=== PATIENT | male | born 1975 | race Caucasian/White ===

== ENCOUNTER 2021-01-01 07:07 | Emergency (ER) | payer OTHER, SELFPAY ==
--- NOTE | ~2021-01-01 | XR_ITS ---
EXAMINATION: XR HIP, RIGHT CLINICAL INFORMATION: Pain COMPARISON: None TECHNIQUE: Two views of the right hip and one view of the pelvis. FINDINGS: There is a battery in the right lower quadrant and lead projecting over the right L3-L4 disc space level. There is mild arthritis at both hip joints with joint space narrowing and small osteophytes. No fracture, dislocation or bone lesion is seen. Bones of the pelvis are unremarkable. There are pelvic calcifications probably representing calcified phleboliths. XR/XR hip RT min 2V IMPRESSION: Mild bilateral hip arthritis.
--- NOTE | 2021-01-01 07:26 | ED.LOWEXIN ---
HPI - Extremity Injury (Lower) General Chief Complaint: Extremity Injury, Lower Stated Complaint: HIP PAIN Time Seen by Provider: 01/01/21 07:13 Source: patient Mode of arrival: ambulatory Limitations: no limitations History of Present Illness HPI Narrative: 45 yo male with dystonia and R hip pain in past told it was arthritis did heavy lifting on Thursday c/o pain very since into leg and buttock, no IVDA, no AC therapy MD complaint: hip injury Onset (ago): day(s) (Thursday) Injury: Right: hip Type of Injury: other (lifting) Place: home Severity: severe Relieving factors: nothing Exacerbating factors: weight bearing and movement Context: other (started after lifting object) Associated symptoms: able to partially bear weight Other symptoms: none Related Data Previous Rx's Medication Instructions Recorded cyclobenzaprine 10 mg PO TID PRN #14 tab 01/01/21 hydrocodone-acetaminophen 1 tab PO Q6H PRN #12 tab 01/01/21 prednisone 40 mg PO DAILY 5 Days #10 tab 01/01/21 Allergies Allergy/AdvReac Type Severity Reaction Status Date / Time Penicillins Allergy Severe ANAPHYLAXIS Verified 01/01/21 07:36 celecoxib [From CELEBREX] Allergy Intermediate RASH Verified 01/01/21 07:36 oxymorphone [From OPANA] Allergy Intermediate RASH Verified 01/01/21 07:36 Aspirin Allergy Unknown Unknown Uncoded 01/01/21 07:36 Penicillin Allergy Unknown Unknown Uncoded 01/01/21 07:36 Review of Systems Review of Systems: Constitutional : No Fever, No Chills, ENT/Mouth : No Ear Pain, No sore throat Cardiovascular : No Chest Pain, No SOB Respiratory : No Cough, No Dyspnea Gastrointestinal : No Nausea, No Vomiting, No Diarrhea, No abdominal Pain, No Hematochezia, No Melena Genitourinary : No Dysuria, No Urinary Frequency, No Hematuria, No Urinary Incontinence, Musculoskeletal : positive joint pain Skin : No Skin Lesions, No rash Neuro : No Weakness, No Numbness, No Paresthesias, no loss of bowel or bladder incontinence, no saddle anesthesia [facility] Past Medical History Medical History (Updated 01/01/21 @ 08:19 by Rossy Duff DO) Arthritis Dystonia Surgical History (Updated 01/01/21 @ 07:28 by Rossy Duff DO) Status post insertion of intrathecal pump Social History Social History (Updated 01/01/21 @ 07:27 by Rossy Duff DO) Alcohol intake: unknown Smoking Status: Never smoker Use of substances other than those prescribed or required for medical reasons: Unknown Advance Directives: No Advance Directives Information Provided: No Physical Exam Vital Signs: Vital Signs: Last Vital Signs Temp 98.0 F 01/01/21 07:30 Pulse 76 01/01/21 07:30 Resp 16 01/01/21 07:30 BP 122/76 01/01/21 07:30 Pulse Ox 99 01/01/21 07:30 Body Mass Index 25.7 Appearance: Alert. Oriented X3. No acute distress. Eyes: Pupils equal, round and reactive to light. ENT: Pharynx normal. Neck: Normal inspection. Neck supple. CVS: Normal heart rate and rhythm. Pulses normal. Respiratory: No respiratory distress. Breath sounds normal. Abdomen: Soft and nontender. Back: some ttp along L5-S1, ttp in R hip, distal NV intact, pain with any movements, SILT inner thigh Skin: Skin warm and dry. Normal skin color. Normal skin turgor. Extremities: No lower extremity edema. No calf ttp Neuro: Oriented X 3. No motor deficit. No sensory deficit. Course Course Course Narrative: no acute findings, will start on PO medications MDM - Extremity Injury (Lower) MDM Narrative Medical decision making narrative: 45 yo male with dystonia and hx of R hip pain was told he has degeneration comes in with c/o R hip/buttock radiating down to leg after heavy lifting at home no b/b incontinence, no saddle anesthesia he is NV intact no CE symptoms likely either occult hip injury vs sciatica - xrays and PO pain control ordered Discharge Plan Discharge Clinical Impression: Acute pain of right hip Sciatica Qualifiers: Laterality: right Qualified Code(s): M54.31 - Sciatica, right side Patient Disposition: Home, Self-Care Instructions: Sciatica (ED) Additional Instructions: return to ED for any worsening symptoms or concerns Prescriptions: New cyclobenzaprine 10 mg tablet 10 mg PO TID PRN (Reason: muscle spasm) Qty: 14 RF: 0 hydrocodone-acetaminophen 5-325 mg tablet 1 tab PO Q6H PRN (Reason: pain) Qty: 12 RF: 0 prednisone 20 mg tablet 40 mg PO DAILY 5 Days Qty: 10 RF: 0 Referrals: Abare,Marty [Primary Care Provider] - 3 days (if not better) Stand Alone Forms: Work/School Release
[2021-01-01 07:30] VITALS: BP 122/76; PULSE 76; RESP 16; TEMP 36.7; O2SAT 99; BMI 25.7
[2021-01-01] MEDS: HYDROcodone Bit/Acetam 5/325 TABLET 1 TAB PO (07:41)
[2021-01-01] MEDS: diazePAM 5 MG TABLET PO (07:41)
[2021-01-01] MEDS: HYDROmorphone HCl 2 MG/ML VIAL IM (08:33)
== END 2021-01-01 08:36 | disposition home or self-care (01) ==
PROVIDERS: Emergency Provider Emergency Medicine; PCP Hospitalist
DX: M25.551 Pain in right hip (principal); M54.31 Sciatica, right side; G24.9 Dystonia, unspecified
CPT/HCPCS: 73502; 96372; 99284; J1170

== ENCOUNTER 2022-05-05 11:16 | Emergency (ER) | payer OTHER, SELFPAY ==
--- NOTE | ~2022-05-05 | XR_ITS ---
EXAMINATION: XR LUMBOSACRAL SPINE CLINICAL INFORMATION: Back pain after injury 4 days ago COMPARISON: CT abdomen pelvis 06/07/2020 TECHNIQUE: Three views of the lumbosacral spine. FINDINGS: 5 nonrib-bearing lumbar vertebral bodies are visualized. Alignment is within normal limits. Lumbar vertebral body heights are maintained. Mild narrowing of the L5/S1 disc space height. Sacroiliac joints are symmetric. Partially visualized generator and spinal stimulator lead. Small pelvic calcifications are likely vascular in nature. Small left renal calcifications suspected. XR/XR lumbar spine 2-3V IMPRESSION: Minimal degenerative changes of the lower lumbar spine.
[2022-05-05 11:57] VITALS: BP 115/71; PULSE 79; RESP 20; TEMP 37.1; O2SAT 98; BMI 30.1
--- NOTE | 2022-05-05 13:08 | ED.BACK ---
HPI - Back Pain/Injury General Chief Complaint: Back Pain/Injury Stated Complaint: back pain Time Seen by Provider: 05/05/22 12:41 Source: patient Mode of arrival: ambulatory Limitations: no limitations History of Present Illness HPI Narrative: Patient presents emergency department for evaluation of lower back pain. He reports that 5 days ago, 05/01/2022 he was bending forward and lifting something at work when he felt a sudden pull in his lower back. He presented to urgent care over the weekend, and states he was given a prescription for prednisone and a muscle relaxer, uncertain of the name, but states that neither have been helpful for his pain. Today he was being seen by his doctor for secondary generalized dystonia, for which he is prescribed baclofen via intrathecal pump, and at this office he received a ?Motrin injection? into his arm for his back pain, but he has continued to have no relief. Denies recent fevers, chills, burning with micturition, urinary frequency/urgency/hesitancy, bladder or bowel dysfunction, numbness or tingling of the perineum or bilateral legs. Denies any recent surgical procedures, any known immune compromising conditions, personal history of cancer, or IV drug usage. MD elicited complaint: back pain Related Data Previous Rx's Medication Instructions Recorded cyclobenzaprine 10 mg tablet 10 mg PO TID PRN muscle spasm #14 01/01/21 tabs hydrocodone 5 mg-acetaminophen 325 1 tab PO Q6H PRN pain #12 tabs 01/01/21 mg tablet prednisone 20 mg tablet 40 mg PO DAILY 5 days #10 tabs 01/01/21 oxycodone 5 mg tablet 5 mg PO Q8H PRN pain #10 tabs 05/05/22 Allergies Allergy/AdvReac Type Severity Reaction Status Date / Time Penicillins Allergy Severe ANAPHYLAXIS Verified 05/05/22 12:02 celecoxib [From CELEBREX] Allergy Intermediate RASH Verified 05/05/22 12:02 oxymorphone [From OPANA] Allergy Intermediate RASH Verified 05/05/22 12:02 Aspirin Allergy Unknown Unknown Uncoded 05/05/22 12:02 Penicillin Allergy Unknown Unknown Uncoded 05/05/22 12:02 Review of Systems Review of Systems: Constitutional: No weight loss, fever, chills, weakness or fatigue. Skin: No rash or itching. Cardiovascular: No chest pain, chest pressure or chest discomfort. No palpitations or pedal edema. Respiratory: No shortness of breath, cough or sputum production. Gastrointestinal: No anorexia, nausea, vomiting or diarrhea. No abdominal pain or blood in stool. Genitourinary: No burning micturition. No urinary frequency or incontinence. Neurologic: No headache, dizziness, syncope, unilateral weakness, ataxia, numbness or tingling in the extremities. No change in bowel or bladder control. Musculoskeletal: + Back pain as noted in HPI. No joint pain or stiffness. Hematologic: No bleeding or bruising. Lymphatics: No enlarged lymph nodes. Psychiatric:No depression or anxiety. Endocrine: No reports of sweating. No cold or heat intolerance. No polyuria or polydipsia. Yes all other systems are reviewed and are negative PMFSH Past Medical History Attestation statement: The following information was validated with the patient. Source: old records reviewed Medical History Arthritis Dystonia Surgical History Status post insertion of intrathecal pump Social History Social History Alcohol intake: unknown Advance Directives: No Advance Directives Information Provided: No Physical Exam Vital Signs: Vital Signs: Last Vital Signs Temp 98.8 F 05/05/22 11:57 Pulse 79 05/05/22 11:57 Resp 20 05/05/22 11:57 BP 115/71 05/05/22 11:57 Pulse Ox 98 05/05/22 11:57 O2 Del Method 05/05/22 11:57 BMI result Body Mass Index 30.1 Vital signs have been reviewed as normal and appeared to be correct. Blood pressure normal.? Heart rate normal.? Respiration rate normal. Temperature normal.? Oxygen saturation normal. Appearance: Alert.?Oriented to person, place and time. No acute distress.?Normal affect. Eyes: Pupils equal, round and reactive to light.? ENT: Pharynx normal.?? Neck: Normal inspection.? Neck supple.?? CVS: Heart sounds normal. Normal heart rate and rhythm.? Pulses normal; bilateral radial pulses 2+, bilateral posterior tibial/dorsalis pedis pulses 2+.? Respiratory: No respiratory distress.? Lung sounds clear to auscultation bilaterally?? Abdomen: Soft and non-tender. Normoactive bowel sounds. No pulsatile mass.?? Skin: Skin warm and dry.? Normal skin color.? Normal skin turgor.?? Extremities: No lower extremity edema.? No calf ttp? Back: + paraspinal muscular tenderness from lumbar region to coccyx. No CVA tenderness. No midline spinal tenderness, step-off's, or deformity. Full ROM intact in bilateral lower extremities. Straight leg test positive on right; Straight leg test positive on left. No rashes, lesions, areas of induration or fluctuance, or signs of infection noted. Neuro: Moves all extremities spontaneously. 5/5 strength in hip extension/flexion, abduction, adduction. Sensation to light touch intact bilaterally. Patellar and Achilles reflex 2+ bilaterally. No ataxia, gait slow steady, and antalgic. No focal neuro deficits. Course Course Course Narrative: Patient is a 46year-old male with a past medical history of arthritis, and dystonia presenting for evaluation of lower back pain after an injury at work. XR of the lumbar spine reveals mild degenerative changes, urinalysis overall unremarkable, no sign of infection or microscopic hematuria. Given he has trialed NSAIDs, prednisone, muscle relaxer at home, continues take significant pain and had gait, and provide additional pain control to go home with, allergy list includes oxymorphone, states he has taken oxycodone in the past without any complication or allergic reaction. Pain is most consistent with muscular pain, although cannot completely exclude herniated disc. On neurological exam there are no deficits. Not consistent with spinal fracture, spinal infection, epidural abscess, AAA, epidural abscess, or dissection. No high risk past medical history including incontinence, fever, immunosuppression, recent surgery or lumbar puncture, coagulopathy, significant trauma, recent unintentional weight loss, pulsatile mass, history of cancer, history of TB, history of IV drug use that would warrant MRI or CT. Not consistent with pyelonephritis, urinary tract infection, renal calculi, appendicitis, diverticulitis. On exam no concern for cauda equina syndrome. No additional imaging is currently indicated at this time. Plan for discharge home with new prescription for oxycodone, and follow-up with primary care provider, discussed reasons to return back to the emergency department, and patient agreed with plan. MDM - Back Pain/Injury Medical Records Attestation: I reviewed the patient's medical records. Lab Data Labs: Lab Results 05/05/22 Range/Units 13:43 Urine Color YELLOW Urine Appearance CLOUDY Urine pH 8.5 H (5.0-8.0) Ur Specific [place] 1.015 (1.005-1.025) Urine Protein NEG (NEG-TRACE) MG/DL Urine Glucose (UA) NEG (NEG) MG/DL Urine Ketones NEG (NEG) MG/DL Urine Blood NEG (NEG) Urine Nitrite NEG (NEG) Ur Leukocyte Esterase NEG (NEG) Imaging Data XR lumbar: Radiologist's impression: XR/XR lumbar spine 2-3V IMPRESSION: Minimal degenerative changes of the lower lumbar spine. Discharge Plan Discharge Clinical Impression: Strain of lumbar region Patient Disposition: Home, Self-Care Instructions: Acute Low Back Pain (ED), Lower Back Exercises (ED) Additional Instructions: Finish your course of prednisone that you were prescribed. Rest, avoid any twisting pulling or lifting with your back. Ice or heat may be used as well. You have been given a prescription for oxycodone to use as needed for pain, this is a narcotic, it can be addictive, and may make you drowsy, he should use caution when taking this medication, do not drive or drink alcohol after taking this medication. Please contact your primary care provider to schedule a follow-up visit within 1 week for re-evaluation May return to the emergency department any new or worsening symptoms or concerns Prescriptions: New oxycodone 5 mg tablet 5 mg PO Q8H PRN (Reason: pain) Qty: 10 0RF Rx Instructions: Partial Fill upon patient request. No Action cyclobenzaprine 10 mg tablet 10 mg PO TID PRN (Reason: muscle spasm) Qty: 14 0RF hydrocodone-acetaminophen 5-325 mg tablet 1 tab PO Q6H PRN (Reason: pain) Qty: 12 0RF prednisone 20 mg tablet 40 mg PO DAILY 5 Days Qty: 10 0RF Stand Alone Forms: Work/School Release Interventions: ED Discharge Assessment Last Done: 05/05/22 15:22 Discharge Date/Time: 05/05/22 15:23
[2022-05-05] MEDS: diazePAM 2 MG TABLET PO (13:20)
[2022-05-05 13:55] LABS: Appearance Urine CLOUDY; Color Urine YELLOW; Glucose Urine UA NEG (NEG); Leukocyte Esterase Urine NEG (NEG); Nitrite Urine NEG (NEG); PH 8.5 (5.0-8.0); Specific Gravity - Urine 1.015 (1.005-1.025); Urine Blood NEG (NEG); Urine Ketones NEG (NEG); Urine Protein NEG (NEG-TRACE)
== END 2022-05-05 15:23 | disposition home or self-care (01) ==
PROVIDERS: Nurse Practitioner Family; Emergency Provider Emergency Medicine Emergency Medical Services
DX: S39.012A Strain of muscle, fascia and tendon of lower back, initial encounter (principal); X50.0XXA Overexertion from strenuous movement or load, initial encounter; X50.3XXA Overexertion from repetitive movements, initial encounter; Y93.9 Activity, unspecified; Y92.9 Unspecified place or not applicable; Y99.0 Civilian activity done for income or pay; Z79.899 Other long term (current) drug therapy
CPT/HCPCS: 72100; 81003; 96372; 99283; 99284

== ENCOUNTER 2022-10-08 20:07 | Emergency (ER) | payer OTHER, SELFPAY ==
--- NOTE | ~2022-10-08 | CT_ITS ---
EXAMINATION: CT HEAD WITHOUT CONTRAST CLINICAL INFORMATION: Headache. Seizure. COMPARISON: None. TECHNIQUE: Contiguous axial imaging was performed from the skull base to vertex without intravenous administration of contrast. Coronal and sagittal reformatted images are performed at the CT scanner. [This CT examination was performed using dose optimization techniques as appropriate, variously including the following: *Automated exposure control *Adjustment of mA and/or kV according to patient size (this includes techniques or standardized protocols for targeted exams where dose is matched to indication/reason for exam; i.e. extremities or head) *Use of iterative reconstruction technique] DLP: 805 mGy-cm. FINDINGS: There is no evidence of acute intracranial hemorrhage or territorial infarction. No abnormal mass-effect or midline shift is seen. Albarado to white matter differentiation is well preserved. No extra-axial fluid collections are identified. The ventricles are normal in size. There is no abnormal attenuation within the brain parenchyma. There is no osseous abnormality. Small retention cyst at the inferior right maxillary sinus. CT/CT head/brain wo IV con IMPRESSION: No acute intracranial pathology.
--- NOTE | ~2022-10-08 | US_ITS ---
EXAMINATION: US RETROPERITONEAL LIMITED (RENAL ONLY) CLINICAL INFORMATION: Urinary retention. COMPARISON: CT abdomen and pelvis dated 06/07/2020; abdominal ultrasound dated 02/26/2014. TECHNIQUE: Real-time imaging of the kidneys. FINDINGS: RIGHT KIDNEY: 10.0 x 6.2 x 6.1 cm (SAG x AP x TRV). The kidney is normal in size, contour, and echogenicity. Renal cortical thickness is normal. No calculi or hydronephrosis. At the interpolar aspect, there are 0.7 x 0.6 x 1.0 cm and 0.5-0 0.5 x 0.7 cm hyperechoic, circumscribed densities which may represent prominent perirenal fat or, alternatively, small benign angiomyolipomas. LEFT KIDNEY: 11.3 x 4.5 x 5.7 cm (SAG x AP x TRV). The kidney is normal in size, contour, and echogenicity. Renal cortical thickness is normal. No calculi or focal parenchymal lesions. No hydronephrosis. BLADDER: Well distended and normal. Bilateral ureteral jets are demonstrated. Prevoid bladder volume is 248 mL. Postvoid bladder volume is not obtained. US/US renal BI IMPRESSION: There are 2 subcentimeter right kidney prominent perinephric fat densities or benign angiomyolipomas. These are of doubtful clinical significance. If clinically indicated (i.e., history of hematuria or known malignancy), these can be more fully evaluated with CT. No renal calculus or hydronephrosis is seen bilaterally.
--- NOTE | ~2022-10-08 | US_ITS ---
EXAMINATION: US ABDOMEN LIMITED CLINICAL INFORMATION: Recent placement of baclofen pump. Mid abdomen and right lower quadrant area. Evaluate for abscess. COMPARISON: None TECHNIQUE: Real-time imaging of the right upper quadrant abdominal viscera. FINDINGS: Sonographic evaluation of the right lower quadrant demonstrates no abnormal fluid collection. US/US abdomen limited IMPRESSION: Sonographic evaluation of the right lower quadrant demonstrates no abnormal fluid collection.
[2022-10-08 20:13] VITALS: BP 141/85; PULSE 88; RESP 16; TEMP 36.7; O2SAT 98; BMI 31.8
--- NOTE | 2022-10-08 20:35 | ED_ITS ---
HPI - Seizure General Chief Complaint: Seizure Stated Complaint: multiple seizures Time Seen by Provider: 10/08/22 20:35 Source: patient, family and EMS Mode of arrival: EMS Limitations: no limitations History of Present Illness HPI Narrative: 47-year-old male with past medical history of chronic dystonia, baclofen pump failure, [place] [facility]. Patient started with spasms and seizure-like activity that was not controlled by p.o. diazepam and baclofen pump. Patient went into seizure activity, requiring EMS to give Versed on transit. MD complaint: seizure Onset (ago): hour(s) Description of Episode: tonic-clonic movement Witnessed: Yes - by Bystander Trauma: No Seizure History: No Place: Home Associated symptoms: denies other symptoms Treatments prior to arrival: benzodiazepines Related Data Previous Rx's Medication Instructions Recorded cyclobenzaprine 10 mg tablet 10 mg PO TID PRN muscle spasm #14 01/01/21 tabs hydrocodone 5 mg-acetaminophen 325 1 tab PO Q6H PRN pain #12 tabs 01/01/21 mg tablet prednisone 20 mg tablet 40 mg PO DAILY 5 days #10 tabs 01/01/21 oxycodone 5 mg tablet 5 mg PO Q8H PRN pain #10 tabs 05/05/22 Allergies Allergy/AdvReac Type Severity Reaction Status Date / Time Penicillins Allergy Severe ANAPHYLAXIS Verified 05/05/22 12:02 celecoxib [From CELEBREX] Allergy Intermediate RASH Verified 05/05/22 12:02 oxymorphone [From OPANA] Allergy Intermediate RASH Verified 05/05/22 12:02 Aspirin Allergy Unknown Unknown Uncoded 05/05/22 12:02 Penicillin Allergy Unknown Unknown Uncoded 05/05/22 12:02 Review of Systems Review of Systems: Constitutional: Positive seizure activity, No Fever, No Chills ENT/Mouth: No Ear Pain, No Hoarseness, No sore throat Eyes: No Eye Pain, No Swelling, No Redness, No Foreign Body Cardiovascular: No Chest Pain, No SOB Respiratory: No Cough, No Dyspnea Gastrointestinal: No Nausea, No Vomiting, No Diarrhea, No abdominal Pain Genitourinary: Positive urinary retention, No Dysuria, No Hematuria Musculoskeletal: Positive dystonia per baseline, No joint pain, No Myalgias, No Joint Swelling Skin: No Skin lacerations, No rash Neuro: No Weakness, No Numbness, No Paresthesias, No Loss of Consciousness, No Dizziness, positive Headache Psych: No Anxiety/Panic, No Depression Heme/Lymph: no easy bruising, no Lymphadenopathy Endocrine: No Polyuria, No Polydipsia Yes all other systems are reviewed and are negative [facility] Past Medical History Attestation statement: The following information was validated with the patient. Source: old records reviewed Medical History Arthritis Dystonia Surgical History Status post insertion of intrathecal pump Social History Social History Alcohol intake: current Alcohol intake frequency: holidays/special occasions only Alcohol type: other Smoked in Last 30 Days: No Use of substances other than those prescribed or required for medical reasons: No Advance Directives: No Advance Directives Information Provided: No Physical Exam Vital Signs: Vital Signs: Last Vital Signs Temp 98.6 F 10/08/22 23:37 Pulse 100 10/08/22 23:37 Resp 16 10/09/22 00:07 BP 105/65 10/08/22 23:37 Pulse Ox 97 10/08/22 23:37 O2 Del Method 10/08/22 23:37 BMI result Body Mass Index 31.8 Appearance: Alert. Oriented X3. Moderate distress. Eyes: Pupils equal, round and reactive to light. ENT: Pharynx normal. Neck: Normal inspection. Neck supple. CVS: Normal heart rate and rhythm. Pulses normal. Respiratory: No respiratory distress. Breath sounds normal. Abdomen: Soft and nontender. Skin: Skin warm and dry. Normal skin color. Normal skin turgor. Extremities: Dystonia per baseline. Spastic musculoskeletal movements Neuro: No motor deficit. No sensory deficit. Neurovascularly intact. Cranial nerves intact. Course Course Course Narrative: 47-year-old male with past medical history of dystonia, had baclofen pump failure, [place] [facility] Patient started with this tonic movements, that were not controlled by baclofen pump and p.o. diazepam. 911 was called, after patient experienced seizure-like activity that did not cease after 40 minutes or so. EMS responded to the patient's home, needed to give IV Versed to help break seizure activity patient presented to the emergency department, was alert oriented x4, appeared tired, reported headache, pain, and urinary retention. Patient has never had urinary retention before with his spastic symptoms, he is followed by medical aide Dr. Olson. Upon arrival, patient is having spastic movements, and requires Versed for seizure- like activity. One seizure-like activity ceases, patient is alert oriented, [place] coma scale 15, unable to assess NIH stroke scale secondary to dystonia. Patient's cranial nerves are intact. Alert oriented x4. Managing secretions, airway is patent, lung sounds are clear 23:05 CT scan of head is negative. Abdominal ultrasound is negative for abnormal fluid collection or abscess. No renal calculus hydronephrosis noted for renal ultrasound. 23:[address] Ghotra, patient's medical aide, . Patient has a longstanding history of spasms, inadequate pain control. Does not feel that this patient requires neurology consult, but would benefit from admission for IV medications for spasm control and pain management. Patient does poorly on p.o. medications, hence baclofen pump. Will discuss with hospitalist. Patient has required multiple doses of IV Versed, pain management, and fluids. Multiple discussions with Dr. Ghotra as well as hospitalist, plan of care is to transfer to a higher level of care. Dr. Ivet colvin feels that this patient requires pain control, muscular spasm control, and evaluation for possible new onset seizure disorder. 01:10 patient accepted at [facility] in [facility] by Dr. De Los Santos. Consultations Consultation #1: fabian Ghotraogist Time: 23:08 Consultation #2: Toby Time: 23:10 Consultation #3: Filiberto, [facility] Time: 01:10 Medications Administered Discontinued Medications Generic Name Dose Route Start Last Admin Trade Name Freq PRN Reason Stop Dose Admin Levetiracetam 1,000 mg in 100 mls @ 400 mls/hr 10/08/22 20:35 10/08/22 21:50 Keppra IV 10/08/22 20:49 Infused ONCE ONE Infusion Sodium Chloride 1,000 mls @ 999 mls/hr 10/08/22 23:30 10/08/22 23:46 Ns IVCONT 10/09/22 00:30 999 mls/hr .Q1H1M TOBY Administration Ketorolac Tromethamine 30 mg 10/08/22 23:28 10/09/22 00:06 Ketorolac Tromethamine 30 Mg/Ml Vial IVPUSH 10/08/22 23:29 30 mg ONCE ONE Administration Lidocaine HCl 10 ml 10/08/22 22:30 10/08/22 23:07 Lidocaine Hcl 2 % Urojet 10 Ml Jel.Pf.Bharati TOPICAL 10/08/22 22:31 Not Given ONCE ONE Midazolam HCl 2 mg 10/08/22 21:02 10/08/22 21:11 Midazolam Hcl/Pf 2 Mg/2 Ml Vial IVPUSH 10/08/22 21:03 2 mg ONCE ONE Administration Midazolam HCl 2 mg 10/08/22 23:34 10/08/22 23:40 Midazolam Hcl/Pf 2 Mg/2 Ml Vial IVPUSH 10/08/22 23:35 2 mg ONCE ONE Administration Midazolam HCl 2 mg 10/09/22 01:25 10/09/22 01:29 Midazolam Hcl/Pf 2 Mg/2 Ml Vial IVPUSH 10/09/22 01:26 2 mg ONCE ONE Administration Morphine Sulfate 2 mg 10/08/22 23:28 10/09/22 00:07 Morphine Sulfate 2 Mg/Ml Cartridge IVPUSH 10/08/22 23:29 2 mg ONCE ONE Administration Protocol Morphine Sulfate 4 mg 10/09/22 01:24 10/09/22 01:31 Morphine Sulfate 4 Mg/Ml Cartridge IVPUSH 10/09/22 01:25 4 mg ONCE ONE Administration Protocol MDM - Seizure Differential Diagnosis Differential diagnosis: Likely intractable seizure disorder and generalized seizure Medical Records Attestation: I reviewed the patient's medical records. Lab Data Attestation: I reviewed the patient's lab results. Result diagrams: 10/08/22 21:07 10/08/22 21:07 Labs: Lab Results 10/08/22 10/08/22 10/08/22 Range/Units 21:07 21:07 21:07 WBC 10.0 (4.8-10.8) X10*3/uL RBC 5.58 (4.60-5.80) X10*6/uL Hgb 15.1 (14.0-18.0) g/dl Hct 44.4 (42.0-52.0) % MCV 79.6 L (80.0-98.0) fL MCH 27.1 (27.0-33.0) pg MCHC 34.0 (31.0-36.0) g/dl RDW 12.2 (11.0-16.0) % Plt Count 251 (160-400) X10*3/uL MPV 9.7 (9.4-12.4) fL Immature Gran % (Auto) 1.6 H (0.0-0.4) % Neut % (Auto) 58.7 (45-73) % Lymph % (Auto) 28.8 (20-40) % Travis % (Auto) 8.1 (2-11) % Eos % (Auto) 2.1 (0-4) % Baso % (Auto) 0.7 (0-2) % Lymph # (Auto) 2.9 (1.2-4.9) X10*3/uL Travis # (Auto) 0.8 (0.1-1.2) X10*3/uL Eos # (Auto) 0.2 (0.0-0.4) X10*3/uL Baso # (Auto) 0.1 (0.0-0.2) X10*3/uL Abs Immat Gran (auto) 0.16 H (0.00-0.03) X10*3/uL Absolute Neuts (auto) 5.9 (2.0-8.3) x10*3/uL Absolute Nucleated RBC 0.000 (0.0-0.012) X10*3/uL Nucleated RBC % (auto) 0.0 (0.0-0.2) /100WBC PT (10.0-13.1) SEC INR (0.9-1.1) APTT 25.9 L (26.0-36.4) SEC Sodium 143 (135-145) mmol/L Potassium 3.6 (3.3-5.1) mmol/L Chloride 106 (96-108) mmol/L Carbon Dioxide 26 (22-29) mmol/L Anion Gap 15 (12-20) BUN 14 (9-16) mg/dL Creatinine 1.00 (0.5-1.4) mg/dL Estim Creat Clear Calc 84.4 Estimated GFR > 60 POC Glucose (60-115) mg/dL Random Glucose 143 H (60-115) mg/dL Lactic Acid (0.5-2.0) mmol/L Calcium 9.0 (8.4-10.2) mg/dL Magnesium 2.1 (1.6-2.6) mg/dL Total Bilirubin 0.4 (0.0-1.0) mg/dL Direct Bilirubin < 0.2 (0.0-0.5) mg/dL AST 21 (5-37) U/L ALT 29 (0-40) U/L Alkaline Phosphatase 67 (39-117) U/L Total Creatine Kinase 153 (38-174) U/L Troponin I High Sens (<3.5-35.0) ng/L Total Protein 6.9 (6.5-8.0) g/dL Albumin 4.0 (3.5-5.0) g/dL Lipase 52 (8-78) U/L Urine Color Urine Appearance Urine pH (5.0-9.0) Ur Specific [place] (1.005-1.025) Urine Protein (Neg-Trace) mg/dL Urine Glucose (UA) (Negative) mg/dL Urine Ketones (Negative) mg/dL Urine Blood (Negative) Urine Nitrite (Negative) Ur Leukocyte Esterase (Negative) Urine RBC (0-2) /HPF Urine WBC (0-5) /HPF Ur Squamous Epith Cells (0-2) /HPF Urine Bacteria (None Seen) Hyaline Casts (0-2) /LPF Influenza Type A (PCR) (Negative) Influenza Type B (PCR) (Negative) RSV RNA Qual (PCR) (Negative) SARS-CoV-2 RNA (RT-PCR) (Negative) 10/08/22 10/08/22 10/08/22 Range/Units 21:07 21:07 21:07 WBC (4.8-10.8) X10*3/uL RBC (4.60-5.80) X10*6/uL Hgb (14.0-18.0) g/dl Hct (42.0-52.0) % MCV (80.0-98.0) fL MCH (27.0-33.0) pg MCHC (31.0-36.0) g/dl RDW (11.0-16.0) % Plt Count (160-400) X10*3/uL MPV (9.4-12.4) fL Immature Gran % (Auto) (0.0-0.4) % Neut % (Auto) (45-73) % Lymph % (Auto) (20-40) % Travis % (Auto) (2-11) % Eos % (Auto) (0-4) % Baso % (Auto) (0-2) % Lymph # (Auto) (1.2-4.9) X10*3/uL Travis # (Auto) (0.1-1.2) X10*3/uL Eos # (Auto) (0.0-0.4) X10*3/uL Baso # (Auto) (0.0-0.2) X10*3/uL Abs Immat Gran (auto) (0.00-0.03) X10*3/uL Absolute Neuts (auto) (2.0-8.3) x10*3/uL Absolute Nucleated RBC (0.0-0.012) X10*3/uL Nucleated RBC % (auto) (0.0-0.2) /100WBC PT (10.0-13.1) SEC INR (0.9-1.1) APTT (26.0-36.4) SEC Sodium (135-145) mmol/L Potassium (3.3-5.1) mmol/L Chloride (96-108) mmol/L Carbon Dioxide (22-29) mmol/L Anion Gap (12-20) BUN (9-16) mg/dL Creatinine (0.5-1.4) mg/dL Estim Creat Clear Calc Estimated GFR POC Glucose (60-115) mg/dL Random Glucose (60-115) mg/dL Lactic Acid 1.4 (0.5-2.0) mmol/L Calcium (8.4-10.2) mg/dL Magnesium (1.6-2.6) mg/dL Total Bilirubin (0.0-1.0) mg/dL Direct Bilirubin (0.0-0.5) mg/dL AST (5-37) U/L ALT (0-40) U/L Alkaline Phosphatase (39-117) U/L Total Creatine Kinase (38-174) U/L Troponin I High Sens < 3.5 (<3.5-35.0) ng/L Total Protein (6.5-8.0) g/dL Albumin (3.5-5.0) g/dL Lipase (8-78) U/L Urine Color Urine Appearance Urine pH (5.0-9.0) Ur Specific [place] (1.005-1.025) Urine Protein (Neg-Trace) mg/dL Urine Glucose (UA) (Negative) mg/dL Urine Ketones (Negative) mg/dL Urine Blood (Negative) Urine Nitrite (Negative) Ur Leukocyte Esterase (Negative) Urine RBC (0-2) /HPF Urine WBC (0-5) /HPF Ur Squamous Epith Cells (0-2) /HPF Urine Bacteria (None Seen) Hyaline Casts (0-2) /LPF Influenza Type A (PCR) NEGATIVE (Negative) Influenza Type B (PCR) NEGATIVE (Negative) RSV RNA Qual (PCR) NEGATIVE (Negative) SARS-CoV-2 RNA (RT-PCR) NEGATIVE (Negative) 10/08/22 10/08/22 10/08/22 Range/Units 21:07 22:04 23:45 WBC (4.8-10.8) X10*3/uL RBC (4.60-5.80) X10*6/uL Hgb (14.0-18.0) g/dl Hct (42.0-52.0) % MCV (80.0-98.0) fL MCH (27.0-33.0) pg MCHC (31.0-36.0) g/dl RDW (11.0-16.0) % Plt Count (160-400) X10*3/uL MPV (9.4-12.4) fL Immature Gran % (Auto) (0.0-0.4) % Neut % (Auto) (45-73) % Lymph % (Auto) (20-40) % Travis % (Auto) (2-11) % Eos % (Auto) (0-4) % Baso % (Auto) (0-2) % Lymph # (Auto) (1.2-4.9) X10*3/uL Travis # (Auto) (0.1-1.2) X10*3/uL Eos # (Auto) (0.0-0.4) X10*3/uL Baso # (Auto) (0.0-0.2) X10*3/uL Abs Immat Gran (auto) (0.00-0.03) X10*3/uL Absolute Neuts (auto) (2.0-8.3) x10*3/uL Absolute Nucleated RBC (0.0-0.012) X10*3/uL Nucleated RBC % (auto) (0.0-0.2) /100WBC PT 12.7 (10.0-13.1) SEC INR 1.1 (0.9-1.1) APTT (26.0-36.4) SEC Sodium (135-145) mmol/L Potassium (3.3-5.1) mmol/L Chloride (96-108) mmol/L Carbon Dioxide (22-29) mmol/L Anion Gap (12-20) BUN (9-16) mg/dL Creatinine (0.5-1.4) mg/dL Estim Creat Clear Calc Estimated GFR POC Glucose 118 H (60-115) mg/dL Random Glucose (60-115) mg/dL Lactic Acid (0.5-2.0) mmol/L Calcium (8.4-10.2) mg/dL Magnesium (1.6-2.6) mg/dL Total Bilirubin (0.0-1.0) mg/dL Direct Bilirubin (0.0-0.5) mg/dL AST (5-37) U/L ALT (0-40) U/L Alkaline Phosphatase (39-117) U/L Total Creatine Kinase (38-174) U/L Troponin I High Sens (<3.5-35.0) ng/L Total Protein (6.5-8.0) g/dL Albumin (3.5-5.0) g/dL Lipase (8-78) U/L Urine Color Yellow Urine Appearance Clear Urine pH 7.5 (5.0-9.0) Ur Specific [place] 1.010 (1.005-1.025) Urine Protein Negative (Neg-Trace) mg/dL Urine Glucose (UA) Negative (Negative) mg/dL Urine Ketones Negative (Negative) mg/dL Urine Blood Moderate (2+) H (Negative) Urine Nitrite Negative (Negative) Ur Leukocyte Esterase Negative (Negative) Urine RBC >20 H (0-2) /HPF Urine WBC 0-5 (0-5) /HPF Ur Squamous Epith Cells 0-2 (0-2) /HPF Urine Bacteria None Seen (None Seen) Hyaline Casts 0-2 (0-2) /LPF Influenza Type A (PCR) (Negative) Influenza Type B (PCR) (Negative) RSV RNA Qual (PCR) (Negative) SARS-CoV-2 RNA (RT-PCR) (Negative) Imaging Data CT scan - head: Attestation: I personally reviewed and interpreted this imaging study as follows: Radiologist's impression: FINDINGS: There is no evidence of acute intracranial hemorrhage or territorial infarction. No abnormal mass-effect or midline shift is seen. Albarado to white matter differentiation is well preserved. No extra-axial fluid collections are identified. The ventricles are normal in size. There is no abnormal attenuation within the brain parenchyma. There is no osseous abnormality. Small retention cyst at the inferior right maxillary sinus. ? CT/CT head/brain wo IV con IMPRESSION: No acute intracranial pathology. Abdominal renal ultrasound: Attestation: I personally reviewed and interpreted this imaging study as follows: Radiologist's impression: EXAMINATION: US ABDOMEN LIMITED CLINICAL INFORMATION: Recent placement of baclofen pump. Mid abdomen and right lower quadrant area. Evaluate for abscess. COMPARISON: None TECHNIQUE: Real-time imaging of the right upper quadrant abdominal viscera. FINDINGS: Sonographic evaluation of the right lower quadrant demonstrates no abnormal fluid collection. US/US abdomen limited IMPRESSION: Sonographic evaluation of the right lower quadrant demonstrates no abnormal fluid collection. ? EXAMINATION: US RETROPERITONEAL LIMITED (RENAL ONLY) CLINICAL INFORMATION: Urinary retention. COMPARISON: CT abdomen and pelvis dated 06/07/2020; abdominal ultrasound dated 02/26/2014. TECHNIQUE: Real-time imaging of the kidneys.? FINDINGS: RIGHT KIDNEY: 10.0 x 6.2 x 6.1 cm (SAG x AP x TRV). The kidney is normal in size, contour, and echogenicity. Renal cortical thickness is normal. No calculi or hydronephrosis. At the interpolar aspect, there are 0.7 x 0.6 x 1.0 cm and 0.5-0 0.5 x 0.7 cm hyperechoic, circumscribed densities which may represent prominent perirenal fat or, alternatively, small benign angiomyolipomas. LEFT KIDNEY: 11.3 x 4.5 x 5.7 cm (SAG x AP x TRV). The kidney is normal in size, contour, and echogenicity. Renal cortical thickness is normal. No calculi or focal parenchymal lesions. No hydronephrosis. BLADDER: Well distended and normal. Bilateral ureteral jets are demonstrated. Prevoid bladder volume is 248 mL. Postvoid bladder volume is not obtained. US/US renal BI IMPRESSION: There are 2 subcentimeter right kidney prominent perinephric fat densities or benign angiomyolipomas. These are of doubtful clinical significance. If clinically indicated (i.e., history of hematuria or known malignancy), these can be more fully evaluated with CT. No renal calculus or hydronephrosis is seen bilaterally. ECG Data Attestation: I personally reviewed and interpreted this ECG as follows: ECG interpretation date: 10/08/22 ECG interpretation time: 21:04 Prior ECG tracings: available for review Interpretation: Vent. rate 90 BPM LA interval 138 ms QRS duration 72 ms QT/QTc 346/423 ms P-R-T axes 56 38 37 Normal sinus rhythm Nonspecific ST abnormality Abnormal ECG When compared with ECG of 07-JUN-2020 18:07, No significant change was found Critical Care Time Critical Care Time Critical Care Time: Yes Total Critical Care Time: 75 Attestation: I have personally provided critical care time exclusive of time spent on separately billable procedures. Time includes review of laboratory data, radiology results, discussion with consultants, and monitoring for potential decompensation. Interventions were performed as documented. Discharge Plan Discharge Clinical Impression: Generalized seizure, Dystonia, Acute urinary retention Patient Disposition: [facility] Transfer Details: Dr De Los Santos, [facility] Prescriptions: No Action cyclobenzaprine 10 mg tablet 10 mg PO TID PRN (Reason: muscle spasm) Qty: 14 0RF hydrocodone-acetaminophen 5-325 mg tablet 1 tab PO Q6H PRN (Reason: pain) Qty: 12 0RF prednisone 20 mg tablet 40 mg PO DAILY 5 Days Qty: 10 0RF oxycodone 5 mg tablet 5 mg PO Q8H PRN (Reason: pain) Qty: 10 0RF Rx Instructions: Partial Fill upon patient request.
--- NOTE | 2022-10-08 20:41 | ECG_ITS ---
Test Reason : SEIZURE Blood Pressure : / mmHG Vent. Rate : 090 BPM Atrial Rate : 090 BPM P-R Int : 138 ms QRS Dur : 072 ms QT Int : 346 ms P-R-T Axes : 056 038 037 degrees QTc Int : 423 ms Normal sinus rhythm Normal ECG When compared with ECG of 07-JUN-2020 18:07, No significant change was found Referred By: Destiny Wilson Electronically Signed By:Melquiades Vallejo
[2022-10-08] MEDS: levETIRAcetam in NaCl (iso-os) 1,000 MG/100 ML PIGGYBACK 400 MG IV (21:09)
[2022-10-08 21:11] LABS: MANUAL DIFF FLAG NO
[2022-10-08] MEDS: Midazolam HCl/PF 2 MG/2 ML VIAL IVPUSH ×2 (21:11→23:40)
[2022-10-08 21:12] LABS: Basophils Absolute Auto 0.1 X10*3/uL (0.0-0.2); Basophils Percent Auto 0.7 % (0-2); Eosinophils Absolute Auto 0.2 X10*3/uL (0.0-0.4); Eosinophils Percent Auto 2.1 % (0-4); Hematocrit 44.4 % (42.0-52.0); Hemoglobin 15.1 g/dl (14.0-18.0); Imm Gran Abs Auto 0.16 X10*3/uL (0.00-0.03); Imm Gran Pct Auto 1.6 % (0.0-0.4); Lymphocytes Absolute Auto 2.9 X10*3/uL (1.2-4.9); Lymphocytes Percent Auto 28.8 % (20-40); Mean Corpuscular Hemoglobin 27.1 pg (27.0-33.0); Mean Corpuscular Volume 79.6 fL (80.0-98.0); Mean Platelet Volume 9.7 fL (9.4-12.4); Monocytes Absolute Auto 0.8 X10*3/uL (0.1-1.2); Monocytes Percent Auto 8.1 % (2-11); Neutrophils Absolute Auto 5.9 x10*3/uL (2.0-8.3); Neutrophils Percent Auto 58.7 % (45-73); Platelet Count 251 X10*3/uL (160-400); Red Blood Count 5.58 X10*6/uL (4.60-5.80); Red Cell Distribution Width 12.2 % (11.0-16.0)
[2022-10-08 21:21] LABS: INTERNATIONAL NORM RATIO 1.1 (0.9-1.1); Prothrombin Time 12.7 SEC (10.0-13.1)
[2022-10-08 21:24] LABS: Partial Thromboplastin Time 25.9 SEC (26.0-36.4)
[2022-10-08 21:25] LABS: Lactic Acid 1.4 mmol/L (0.5-2.0)
[2022-10-08 21:31] LABS: Alanine Aminotransferase 29 U/L (0-40); Alkaline Phosphatase 67 U/L (39-117); Anion Gap 15 (12-20); Aspartate Amino Transferase 21 U/L (5-37); Bilirubin Direct < 0.2 mg/dL (0.0-0.5); Blood Urea Nitrogen 14 mg/dL (9-16); Carbon Dioxide 26 mmol/L (22-29); Chloride 106 mmol/L (96-108); Creatinine Clr Calc Pharmacy 84.4; Estimated Glomerular Filt Rate > 60; Glucose Random 143 mg/dL (60-115); Lipase 52 U/L (8-78); Magnesium 2.1 mg/dL (1.6-2.6); Potassium 3.6 mmol/L (3.3-5.1); Sodium 143 mmol/L (135-145); Total Protein 6.9 g/dL (6.5-8.0)
[2022-10-08 21:36] LABS: Troponin-I High Sensitivity < 3.5 ng/L (<3.5-35.0)
[2022-10-08 21:53] LABS: Influenza A PCR NEGATIVE (Negative); Influenza B PCR NEGATIVE (Negative); Resp Syncy Virus RNA Qual PCR NEGATIVE (Negative); SARS COV2 PCR INHOUSE NEGATIVE (Negative)
[2022-10-08 22:24] LABS: Appearance Urine Clear; Color Urine Yellow; Glucose Urine UA Negative (Negative); Leukocyte Esterase Urine Negative (Negative); Nitrite Urine Negative (Negative); PH 7.5 (5.0-9.0); UMIC TRIGGER UACC YES; Urine Blood Moderate (2+) (Negative); Urine Ketones Negative (Negative); Urine Protein Negative (Neg-Trace)
[2022-10-08 22:34] LABS: Bacteria Urine None Seen (None Seen); Hyaline Casts Urine 0-2 /LPF (0-2); RBC Urine >20 /HPF (0-2); Squamous Epithelial Cell Urine 0-2 /HPF (0-2); WBC Urine 0-5 /HPF (0-5)
[2022-10-08 23:37] VITALS: BP 105/65; PULSE 100; RESP 20; TEMP 37; O2SAT 97
--- NOTE | 2022-10-08 23:41 | PC.NURSE ---
Per Lupe, distribution tech patient attempted to get up and then started to shake/developed seizure like shakiness that lasted approximately 2 minutes. Destiny, provider notified. Versed 2 mg IV administered per MD order-no further seizure like activity noted. Dr. Luis at bedside.
[2022-10-08] MEDS: 0.9 % Sodium Chloride 1,000 ML 999 ML IVCONT (23:46)
--- NOTE | 2022-10-08 23:48 | PC.NURSE ---
call out to [facility] transfer line @[id number] [facility] is not accepting any transfers at the moment
[2022-10-08 23:49] LABS: Bilirubin Total 0.4 mg/dL (0.0-1.0)
--- NOTE | 2022-10-08 23:49 | PC.NURSE ---
call out to [facility] @ 1902 demographics given to the transfer line
[2022-10-08 23:51] LABS: Glucose, Whole Blood 118 mg/dL (60-115)
[2022-10-09] MEDS: Ketorolac Tromethamine 30 MG/ML VIAL IVPUSH (00:06)
[2022-10-09 00:07] VITALS: RESP 16
[2022-10-09] MEDS: Morphine Sulfate 2 MG/ML CARTRIDGE IVPUSH (00:07)
[2022-10-09] MEDS: Midazolam HCl/PF 2 MG/2 ML VIAL IVPUSH (01:29)
[2022-10-09] MEDS: Morphine Sulfate 4 MG/ML CARTRIDGE IVPUSH (01:31)
--- NOTE | 2022-10-09 01:39 | PC.NURSE ---
Patient developed another episode of seizure like activity presenting with spastic movement/shakiness, rolled eyes, and not responding not his name-activity witnessed by this RN and VÍCTOR Christina-duration of activity about 2 min. During seizure like episode, patient managing secretions, airway patent. Seizure precautions maintained. Versed 2 mg IV push administered per providers order. Prior seizure like activity patient has been reporting abdominal and low back pain 10/10 on 0-10 pain scale. Morphine 4 MG IV push administered. Patient is awake at present-alert and oriented x3.
--- NOTE | 2022-10-09 02:16 | PC.NURSE ---
Patient is resting with his eyes closed, easily awakening for assessment-he reports improvement in abdominal/low back pain / at present. He is alert and oriented x3. 97.9, P 62, BP 107/79, RR 16, unlabored, O2 Sat 96% RA.
--- NOTE | 2022-10-09 02:39 | PC.NURSE ---
Report is given to [facility]-patient to be transported to [facility] with animal husbandry worker on, NS 1000 mL bolus running.
--- NOTE | 2022-10-09 02:53 | PC.NURSE ---
@0111 Call out to [facility] [place] office for an ALS transport to [facility] ER in [place], [place] This US was on this call for a total of 12 minutes. [place] dispatch asked for providers name for stat transfer, Destiny Ramirez MARKET DEVELOPMENT ANALYST took over phone call to speak to dispatch
--- NOTE | 2022-10-09 03:00 | PC.NURSE ---
Nurse to nurse report given to VÍCTOR Horne at [facility] ED.
--- NOTE | 2022-10-09 03:22 | PC.NURSE ---
@0133 Call out to [facility] Mixing Technician, Danny
--- NOTE | 2022-10-09 05:18 | PM.EVENT ---
Event Note Date of Service: 10/09/22 Event Note: I was asked by ED provider to see this pt for possible admission to our service. On my evaluation of pt, pt is post-ictal, he had just expereinced two more episodes of seizure requiring a 3 dose of versed. Pt has been having multiple seizure like episodes since presenting to the ED in the evening of 10/08 requiring multiple rounds of Versed and has received keppra. Given pt's recurrent seizures and likely need for possible video EEG vs versed drip, pt would not be aprropriate to admit to our service. I wanted a neurology evaluation but it was felt that pt would benefit from services that we may not be able to provide at this hospital. i agree with ED provider. pt will be transferred to outside hospital.
== END 2022-10-09 03:03 | disposition short-term general hospital (02) ==
PROVIDERS: Nurse Practitioner Family; Emergency Provider Internal Medicine
DX: G40.409 Other generalized epilepsy and epileptic syndromes, not intractable, without status epilepticus (principal); G24.9 Dystonia, unspecified; R33.9 Retention of urine, unspecified; Z20.822 Contact with and (suspected) exposure to COVID-19
CPT/HCPCS: 0241U; 36415; 51798; 70450; 76705; 76775; 80048; 80076; 81001; 82550; 82947; 83605; 83690; 83735; 84484; 85025; 85610; 85730; 87040; 93005; 96365; 96375; 96376; 99285; J1885; J1953; J2250; J2270

== ENCOUNTER 2023-02-06 13:00 | Outpatient (RCR) | payer OTHER, SELFPAY | END 2023-03-09 11:58 | disposition home or self-care (01) | LOC: HO.PTCHIC 13:00 | PROVIDERS: PCP Registered Nurse; Visit Provider Anesthesiology | DX: M54.50 Low back pain, unspecified (principal) | CPT/HCPCS: 97110; 97140; 97163; 97530 ==

== ENCOUNTER 2023-06-12 20:54 | Emergency (ER) | payer OTHER, SELFPAY ==
--- NOTE | ~2023-06-12 | CT_ITS ---
EXAMINATION: CT ABDOMEN AND PELVIS WITHOUT CONTRAST CLINICAL INFORMATION: Pain in region of baclofen pump COMPARISON: 06/07/2020 TECHNIQUE: Multidetector volumetric imaging was performed from the superior aspect of the liver through the pubic symphysis. Sagittal and coronal reformatted images were obtained on the technologist's workstation. This CT examination was performed using dose optimization techniques as appropriate, variously including the following: *Automated exposure control *Adjustment of mA and/or kV according to patient size (this includes techniques or standardized protocols for targeted exams where dose is matched to indication/reason for exam; i.e. extremities or head) *Use of iterative reconstruction technique DLP: 566 mGy-cm FINDINGS: LUNG BASES: The visualized lung bases are unremarkable. LIVER, GALLBLADDER, AND BILIARY TREE: The liver is normal in size, shape, and attenuation. No focal hepatic lesion or biliary ductal dilatation is present. Cholecystectomy. PANCREAS: Unremarkable. SPLEEN: Unremarkable. ADRENAL GLANDS: Unremarkable. KIDNEYS AND URETERS: There is a 4 mm calculus in the distal right ureter, 1 cm proximal to the ureterovesical junction associated with mild upstream hydroureter and caliectasis. Numerous bilateral nonobstructive intrarenal calculi range in size from punctate to 2 mm. BLADDER: Unremarkable. GASTROINTESTINAL TRACT: The small and large bowel are unremarkable. The appendix is unremarkable. ABDOMINAL WALL: Baclofen pump present in the right hemiabdomen subcutaneous fat. No abnormalities associated with the pump. No hernias. LYMPH NODES: Normal. VASCULAR: Aorta is mildly atherosclerotic but normal caliber. PELVIC VISCERA: Mild prostatomegaly. Seminal vesicles unremarkable. OSSEOUS STRUCTURES: Unremarkable. CT/CT abdomen pelvis wo IV con IMPRESSION: * There is a 4 mm calculus within the distal RIGHT ureter, 1 cm proximal to the ureterovesical junction associated with mild upstream hydroureter and caliectasis. * Numerous bilateral nonobstructive intrarenal calculi.
[2023-06-12 20:56] VITALS: PULSE 148; RESP 20; TEMP 36.4; O2SAT 98; BMI 30.6
[2023-06-12 22:24] LABS: MANUAL DIFF FLAG NO
--- NOTE | 2023-06-12 22:29 | PC.NURSE ---
repeat poc 371 . pt states she has been taking cough drops all day and that is the cause of her high sugars.
[2023-06-12 22:35] LABS: Basophils Absolute Auto 0.1 X10*3/uL (0.0-0.2); Basophils Percent Auto 1.3 % (0-2); Eosinophils Absolute Auto 0.3 X10*3/uL (0.0-0.4); Eosinophils Percent Auto 4.2 % (0-4); Hematocrit 45.7 % (42.0-52.0); Hemoglobin 15.5 g/dl (14.0-18.0); Imm Gran Abs Auto 0.05 X10*3/uL (0.00-0.03); Imm Gran Pct Auto 0.6 % (0.0-0.4); Lymphocytes Percent Auto 37.8 % (20-40); Mean Corpuscular HGB Conc 33.9 g/dl (31.0-36.0); Mean Corpuscular Hemoglobin 27.3 pg (27.0-33.0); Mean Corpuscular Volume 80.5 fL (80.0-98.0); Mean Platelet Volume 10.4 fL (9.4-12.4); Monocytes Absolute Auto 0.7 X10*3/uL (0.1-1.2); Monocytes Percent Auto 9.2 % (2-11); Neutrophils Absolute Auto 3.7 x10*3/uL (2.0-8.3); Neutrophils Percent Auto 46.9 % (45-73); Platelet Count 250 X10*3/uL (160-400); Red Blood Count 5.68 X10*6/uL (4.60-5.80); Red Cell Distribution Width 12.4 % (11.0-16.0); White Blood Count 7.9 X10*3/uL (4.8-10.8)
[2023-06-12 22:36] VITALS: BP 125/67; PULSE 61; RESP 22; TEMP 36.5; O2SAT 96
[2023-06-12 22:51] LABS: Alanine Aminotransferase 27 U/L (0-40); Albumin Level 4.4 g/dL (3.5-5.0); Alkaline Phosphatase 65 U/L (39-117); Anion Gap 16 (12-20); Aspartate Amino Transferase 28 U/L (5-37); Bilirubin Total 0.4 mg/dL (0.0-1.0); Blood Urea Nitrogen 14 mg/dL (9-16); Calcium 9.5 mg/dL (8.4-10.2); Carbon Dioxide 22 mmol/L (22-29); Chloride 108 mmol/L (96-108); Estimated Glomerular Filt Rate > 60; Glucose Random 114 mg/dL (60-115); Potassium 3.5 mmol/L (3.3-5.1); Sodium 142 mmol/L (135-145); Total Protein 7.9 g/dL (6.5-8.0)
[2023-06-12 22:52] LABS: Lactic Acid 1.8 mmol/L (0.5-2.0)
--- NOTE | 2023-06-12 22:58 | ED_ITS ---
HPI - General Adult General Chief complaint: General Medical Stated complaint: Pump issue? 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 noticed pain at the pump site for last few hours, no recent trauma no nausea no vomiting patient does have a remote history of kidney stones pain radiates under the baclofen pump location to the groin area no hematuria no urinary symptoms no fever or chills Related Data Previous Rx's Medication Instructions Recorded cyclobenzaprine 10 mg tablet 10 mg PO TID PRN muscle spasm #14 01/01/21 tabs hydrocodone 5 mg-acetaminophen 325 1 tab PO Q6H PRN pain #12 tabs 01/01/21 mg tablet prednisone 20 mg tablet 40 mg PO DAILY 5 days #10 tabs 01/01/21 oxycodone 5 mg tablet 5 mg PO Q8H PRN pain #10 tabs 05/05/22 oxycodone 5 mg tablet 5 mg PO Q6H PRN pain #20 tabs 06/13/23 tamsulosin 0.4 mg capsule (Flomax) 0.4 mg PO BEDTIME #10 caps 06/13/23 Allergies Allergy/AdvReac Type Severity Reaction Status Date / Time Penicillins Allergy Severe ANAPHYLAXIS Verified 05/05/22 12:02 celecoxib [From CELEBREX] Allergy Intermediate RASH Verified 05/05/22 12:02 oxymorphone [From OPANA] Allergy Intermediate RASH Verified 05/05/22 12:02 Aspirin Allergy Unknown Unknown Uncoded 05/05/22 12:02 Penicillin Allergy Unknown Unknown Uncoded 05/05/22 12:02 Review of Systems Review of Systems: Yes all other systems are reviewed and are negative [facility] Past Medical History Medical History Arthritis Dystonia Surgical History Status post insertion of intrathecal pump Social History Social History Alcohol intake: unknown Smoked in Last 30 Days: No Advance Directives: No Advance Directives Information Provided: No Physical Exam ED Vital Signs: Vital Signs - 24 hr 06/12/23 20:56 06/12/23 22:36 06/13/23 01:38 Temperature 97.6 F 97.7 F 97.7 F Pulse Rate 148 H 61 59 Respiratory Rate 20 22 H 18 Blood Pressure 125/67 128/88 Pulse Oximetry 98 96 97 Oxygen Delivery Method Room Air Room Air BMI result Body Mass Index 30.6 Appearance: Alert. Oriented X3. No acute distress. ENT: Pharynx normal. Oral Mucosa moist Neck: Normal inspection. Neck supple. CVS: Normal heart rate and rhythm. Pulses normal. Respiratory: No respiratory distress. Equal air entry bilateral, no wheezing/rales/rhonchi Abdomen: Soft, tenderness at the baclofen pump right lower abdomen Bowel sounds are present, no mass palpable, no CVA tenderness Skin: Skin warm and dry. Normal skin color. Normal skin turgor. Extremities: No lower extremity edema. No calf tenderness Neuro: Oriented X 3. No motor deficit. Medications Administered Discontinued Medications Generic Name Dose Route Start Last Admin Trade Name Freq PRN Reason Stop Dose Admin Sodium Chloride 1,000 mls @ 999 mls/hr 06/13/23 01:06 06/13/23 02:44 Ns IV 06/13/23 02:06 Infused .Q1H1M ONE Infusion Ketorolac Tromethamine 30 mg 06/13/23 01:06 06/13/23 01:30 Ketorolac Tromethamine 30 Mg/Ml Vial IVPUSH 06/13/23 01:07 30 mg ONCE ONE Administration Morphine Sulfate 4 mg 06/13/23 01:06 06/13/23 01:30 Morphine Sulfate 4 Mg/Ml Cartridge IVPUSH 06/13/23 01:07 4 mg ONCE ONE Administration Protocol Ondansetron HCl 4 mg 06/13/23 01:32 06/13/23 01:34 Ondansetron Hcl 4 Mg/2 Ml Vial IVPUSH 06/13/23 01:33 4 mg ONCE ONE Administration Medical Decision Making Medical Decision Making MDM Narrative: Patient with right ureteric stone 4 mm mid ureteric stone with slight hydronephrosis with slight hematuria Lab Data [facility] Lab Attestation statement: I reviewed the patient's lab results. 06/12/23 22:16 06/12/23 22:16 Labs: Lab Results 06/12/23 06/12/23 06/12/23 Range/Units 22:16 22:16 22:16 WBC 7.9 (4.8-10.8) X10*3/uL RBC 5.68 (4.60-5.80) X10*6/uL Hgb 15.5 (14.0-18.0) g/dl Hct 45.7 (42.0-52.0) % MCV 80.5 (80.0-98.0) fL MCH 27.3 (27.0-33.0) pg MCHC 33.9 (31.0-36.0) g/dl RDW 12.4 (11.0-16.0) % Plt Count 250 (160-400) X10*3/uL MPV 10.4 (9.4-12.4) fL Immature Gran % (Auto) 0.6 H (0.0-0.4) % Neut % (Auto) 46.9 (45-73) % Lymph % (Auto) 37.8 (20-40) % [place] % (Auto) 9.2 (2-11) % Eos % (Auto) 4.2 H (0-4) % Baso % (Auto) 1.3 (0-2) % Lymph # (Auto) 3.0 (1.2-4.9) X10*3/uL [place] # (Auto) 0.7 (0.1-1.2) X10*3/uL Eos # (Auto) 0.3 (0.0-0.4) X10*3/uL Baso # (Auto) 0.1 (0.0-0.2) X10*3/uL Abs Immat Gran (auto) 0.05 H (0.00-0.03) X10*3/uL Absolute Neuts (auto) 3.7 (2.0-8.3) x10*3/uL Absolute Nucleated RBC 0.000 (0.0-0.012) X10*3/uL Nucleated RBC % (auto) 0.0 (0.0-0.2) /100WBC Sodium 142 (135-145) mmol/L Potassium 3.5 (3.3-5.1) mmol/L Chloride 108 (96-108) mmol/L Carbon Dioxide 22 (22-29) mmol/L Anion Gap 16 (12-20) BUN 14 (9-16) mg/dL Creatinine 1.01 (0.5-1.4) mg/dL Estim Creat Clear Calc 82.0 Estimated GFR > 60 Random Glucose 114 (60-115) mg/dL Lactic Acid 1.8 (0.5-2.0) mmol/L Calcium 9.5 (8.4-10.2) mg/dL Total Bilirubin 0.4 (0.0-1.0) mg/dL AST 28 (5-37) U/L ALT 27 (0-40) U/L Alkaline Phosphatase 65 (39-117) U/L Total Protein 7.9 (6.5-8.0) g/dL Albumin 4.4 (3.5-5.0) g/dL Urine Color Urine Appearance Urine pH (5.0-9.0) Ur Specific [place] (1.005-1.025) Urine Protein (Neg-Trace) mg/dL Urine Glucose (UA) (Negative) mg/dL Urine Ketones (Negative) mg/dL Urine Blood (Negative) Urine Nitrite (Negative) Ur Leukocyte Esterase (Negative) Urine RBC (0-2) /HPF Urine WBC (0-5) /HPF Ur Squamous Epith Cells (0-2) /HPF Urine Bacteria (None Seen) Hyaline Casts (0-2) /LPF 06/13/23 Range/Units 00:41 WBC (4.8-10.8) X10*3/uL RBC (4.60-5.80) X10*6/uL Hgb (14.0-18.0) g/dl Hct (42.0-52.0) % MCV (80.0-98.0) fL MCH (27.0-33.0) pg MCHC (31.0-36.0) g/dl RDW (11.0-16.0) % Plt Count (160-400) X10*3/uL MPV (9.4-12.4) fL Immature Gran % (Auto) (0.0-0.4) % Neut % (Auto) (45-73) % Lymph % (Auto) (20-40) % [place] % (Auto) (2-11) % Eos % (Auto) (0-4) % Baso % (Auto) (0-2) % Lymph # (Auto) (1.2-4.9) X10*3/uL [place] # (Auto) (0.1-1.2) X10*3/uL Eos # (Auto) (0.0-0.4) X10*3/uL Baso # (Auto) (0.0-0.2) X10*3/uL Abs Immat Gran (auto) (0.00-0.03) X10*3/uL Absolute Neuts (auto) (2.0-8.3) x10*3/uL Absolute Nucleated RBC (0.0-0.012) X10*3/uL Nucleated RBC % (auto) (0.0-0.2) /100WBC Sodium (135-145) mmol/L Potassium (3.3-5.1) mmol/L Chloride (96-108) mmol/L Carbon Dioxide (22-29) mmol/L Anion Gap (12-20) BUN (9-16) mg/dL Creatinine (0.5-1.4) mg/dL Estim Creat Clear Calc Estimated GFR Random Glucose (60-115) mg/dL Lactic Acid (0.5-2.0) mmol/L Calcium (8.4-10.2) mg/dL Total Bilirubin (0.0-1.0) mg/dL AST (5-37) U/L ALT (0-40) U/L Alkaline Phosphatase (39-117) U/L Total Protein (6.5-8.0) g/dL Albumin (3.5-5.0) g/dL Urine Color Yellow Urine Appearance Turbid Urine pH 8.5 (5.0-9.0) Ur Specific [place] 1.015 (1.005-1.025) Urine Protein Negative (Neg-Trace) mg/dL Urine Glucose (UA) Negative (Negative) mg/dL Urine Ketones Negative (Negative) mg/dL Urine Blood Moderate (2+) H (Negative) Urine Nitrite Negative (Negative) Ur Leukocyte Esterase Negative (Negative) Urine RBC >20 H (0-2) /HPF Urine WBC 0-5 (0-5) /HPF Ur Squamous Epith Cells 0-2 (0-2) /HPF Urine Bacteria None Seen (None Seen) Hyaline Casts 0-2 (0-2) /LPF Radiology Impression Discussion of test interpretation with radiology: I have reviewed the radiologi st's reading. Radiologist Impression: [facility] [address] [place] [address] CT Scan Report Signed Patient: Bladimir Clark MR#: [id number] : 1975 Acct:[id number] Age/Sex: 47 / M ADM Date: 06/12/23 Loc: HO.ED Attending Dr: Ordering Physician: Rickie Quintero MD Date of Service: 06/13/23 Procedure(s): CT abdomen pelvis wo IV con Accession Number(s): [id number] cc: Rickie Quintero MD~ EXAMINATION: CT ABDOMEN AND PELVIS WITHOUT CONTRAST? CLINICAL INFORMATION: Pain in region of baclofen pump? COMPARISON: 06/07/2020 TECHNIQUE: Multidetector volumetric imaging was performed from the superior aspect of the liver through the pubic symphysis. Sagittal and coronal reformatted images were obtained on the technologist's workstation.? This CT examination was performed using dose optimization techniques as appropriate, variously including the following: *Automated exposure control *Adjustment of mA and/or kV according to patient size (this includes techniques or standardized protocols for targeted exams where dose is matched to indication/reason for exam; i.e. extremities or head) *Use of iterative reconstruction technique DLP: 566 mGy-cm FINDINGS: LUNG BASES: The visualized lung bases are unremarkable.? LIVER, GALLBLADDER, AND BILIARY TREE: The liver is normal in size, shape, and attenuation. No focal hepatic lesion or biliary ductal dilatation is present. Cholecystectomy.? PANCREAS: Unremarkable.? SPLEEN: Unremarkable.? ADRENAL GLANDS: Unremarkable.? KIDNEYS AND URETERS: There is a 4 mm calculus in the distal right ureter, 1 cm proximal to the ureterovesical junction associated with mild upstream hydroureter and caliectasis. Numerous bilateral nonobstructive intrarenal calculi range in size from punctate to 2 mm. BLADDER: Unremarkable.? GASTROINTESTINAL TRACT: The small and large bowel are unremarkable. The appendix is unremarkable.? ABDOMINAL WALL: Baclofen pump present in the right hemiabdomen subcutaneous fat. No abnormalities associated with the pump. No hernias.? LYMPH NODES: Normal. VASCULAR: Aorta is mildly atherosclerotic but normal caliber. PELVIC VISCERA: Mild prostatomegaly. Seminal vesicles unremarkable.? OSSEOUS STRUCTURES: Unremarkable.? CT/CT abdomen pelvis wo IV con IMPRESSION: *? There is a 4 mm calculus within the distal RIGHT ureter, 1 cm proximal to the ureterovesical junction associated with mild upstream hydroureter and caliectasis. *? Numerous bilateral nonobstructive intrarenal calculi. ? Discharge Plan Discharge Clinical Impression: Ureteric stone Patient Disposition: Home, Self-Care Instructions: Ureteral Stones (ED) Additional Instructions: Drink plenty of fluids Pain medication as prescribed Take Flomax daily till stone passed Likely stone will pass if pain continues to get worse follow-up with urologist Prescriptions: New oxycodone 5 mg tablet 5 mg PO Q6H PRN (Reason: pain) Qty: 20 0RF Rx Instructions: Partial Fill upon patient request. tamsulosin [Flomax] 0.4 mg capsule 0.4 mg PO BEDTIME Qty: 10 0RF No Action cyclobenzaprine 10 mg tablet 10 mg PO TID PRN (Reason: muscle spasm) Qty: 14 0RF hydrocodone-acetaminophen 5-325 mg tablet 1 tab PO Q6H PRN (Reason: pain) Qty: 12 0RF prednisone 20 mg tablet 40 mg PO DAILY 5 Days Qty: 10 0RF oxycodone 5 mg tablet 5 mg PO Q8H PRN (Reason: pain) Qty: 10 0RF Rx Instructions: Partial Fill upon patient request. Referrals: Luis Lau MD [Physician] - 1 week Interventions: ED Discharge Assessment Last Done: 06/13/23 03:35 Discharge Date/Time: 06/13/23 03:36
[2023-06-13 00:47] LABS: Appearance Urine Turbid; Color Urine Yellow; Glucose Urine UA Negative (Negative); Leukocyte Esterase Urine Negative (Negative); Nitrite Urine Negative (Negative); PH 8.5 (5.0-9.0); Specific Gravity - Urine 1.015 (1.005-1.025); UMIC TRIGGER UACC YES; Urine Blood Moderate (2+) (Negative); Urine Ketones Negative (Negative); Urine Protein Negative (Neg-Trace)
[2023-06-13 00:54] LABS: Bacteria Urine None Seen (None Seen); Hyaline Casts Urine 0-2 /LPF (0-2); RBC Urine >20 /HPF (0-2); Squamous Epithelial Cell Urine 0-2 /HPF (0-2); WBC Urine 0-5 /HPF (0-5)
[2023-06-13] MEDS: Morphine Sulfate 4 MG/ML CARTRIDGE IVPUSH (01:30)
[2023-06-13] MEDS: 0.9 % Sodium Chloride 1,000 ML 999 ML IV (01:30)
[2023-06-13] MEDS: Ketorolac Tromethamine 30 MG/ML VIAL IVPUSH (01:30)
[2023-06-13] MEDS: ondansetron HCL 4 MG/2 ML VIAL IVPUSH (01:34)
[2023-06-13 01:38] VITALS: BP 128/88; PULSE 59; RESP 18; TEMP 36.5; O2SAT 97
== END 2023-06-13 03:36 | disposition home or self-care (01) ==
PROVIDERS: Emergency Provider Internal Medicine; PCP Registered Nurse
DX: N13.2 Hydronephrosis with renal and ureteral calculous obstruction (principal)
CPT/HCPCS: 36415; 74176; 80053; 81001; 83605; 85025; 87040; 96361; 96374; 96375; 99284; J1885; J2270; J2405

== ENCOUNTER 2023-11-03 18:14 | Emergency (ER) | payer OTHER, SELFPAY ==
--- NOTE | ~2023-11-03 | XR_ITS ---
EXAMINATION: XR CERVICAL SPINE CLINICAL INFORMATION: Neck pain with history of fusion COMPARISON: CT cervical spine 04/06/2017 TECHNIQUE: 3 views of the cervical spine were obtained. FINDINGS: There is anterior fusion at C6-C7 with plate and screws. Degenerative changes are seen predominantly from c 4 through C7 with disc space narrowing and some osteophytes. No soft tissue swelling, fractures or subluxations are seen. XR/XR cervical spine 2V IMPRESSION: Anterior fusion C6-C7. Degenerative changes C4-C7. No acute finding.
--- NOTE | ~2023-11-03 | CT_ITS ---
EXAMINATION: CT head/brain wo IV con CLINICAL INFORMATION: Reason for Exam new onset [place] COMPARISON: CT head without contrast 10/08/2022 TECHNIQUE: Contiguous axial imaging was performed from the skull base to vertex without intravenous contrast. Sagittal and coronal reformatted images were obtained. This CT examination was performed using dose optimization techniques as appropriate, variously including the following: * Automated exposure control * Adjustment of mA and/or kV according to patient size (this includes techniques or standardized protocols for targeted exams where dose is matched to indication/reason for exam; i.e. extremities or head) Use of iterative reconstruction technique DLP: 718.1 mGy-cm FINDINGS: No acute osseous or soft tissue abnormality. The mastoid air cells and visualized portions of the paranasal sinuses are well aerated. There is no evidence of acute intracranial hemorrhage or territorial infarction. No abnormal mass effect or midline shift is seen. [place]barado to white matter differentiation is well preserved. No extra-axial fluid collections are identified. No hydrocephalus. No significant volume loss. There is no abnormal attenuation within the brain parenchyma. CT/CT head/brain wo IV con IMPRESSION: No acute intracranial abnormality including hemorrhage, mass effect, hydrocephalus, or acute territorial edematous infarction.
[2023-11-03 19:11] VITALS: BP 148/94; PULSE 75; RESP 15; TEMP 36.8; O2SAT 98; BMI 34.9
--- NOTE | 2023-11-03 19:11 | ED_ITS ---
HPI - General Adult General Chief complaint: Headache Stated complaint: Headache x 6 days sent by [facility] Time Seen by Provider: 11/04/23 01:49 Source: patient Mode of arrival: ambulatory History of Present Illness HPI narrative: 48-year-old male with history and clinical presentation of 6 days of headache without fevers, chills, nausea, vomiting and denies any history of migraine headaches. Patient states that he has a baclofen pump and has chronic neck pain. Related Data Previous Rx's Medication Instructions Recorded cyclobenzaprine 10 mg tablet 10 mg PO TID PRN muscle spasm #14 01/01/21 tabs hydrocodone 5 mg-acetaminophen 325 1 tab PO Q6H PRN pain #12 tabs 01/01/21 mg tablet prednisone 20 mg tablet 40 mg (2 x 20 mg) PO DAILY 5 days 01/01/21 #10 tabs oxycodone 5 mg tablet 5 mg PO Q8H PRN pain #10 tabs 05/05/22 oxycodone 5 mg tablet 5 mg PO Q6H PRN pain #20 tabs 06/13/23 tamsulosin 0.4 mg capsule (Flomax) 0.4 mg PO BEDTIME #10 caps 06/13/23 Allergies Allergy/AdvReac Type Severity Reaction Status Date / Time Penicillins Allergy Severe ANAPHYLAXIS Verified 11/03/23 19:11 celecoxib [From CELEBREX] Allergy Intermediate RASH Verified 11/03/23 19:11 oxymorphone [From OPANA] Allergy Intermediate RASH Verified 11/03/23 19:11 Aspirin Allergy Unknown Unknown Uncoded 05/05/22 12:02 Penicillin Allergy Unknown Unknown Uncoded 05/05/22 12:02 Review of Systems 2 Review of Systems: Pertinent positives and negatives as stated in [facility] Past Medical History Source: nursing notes reviewed Medical History Dystonia Arthritis Surgical History Status post insertion of intrathecal pump Social History Social History Alcohol intake: current Alcohol intake frequency: holidays/special occasions only Alcohol type: other Smoked in Last 30 Days: No Use of substances other than those prescribed or required for medical reasons: No Advance Directives: No Advance Directives Information Provided: No Physical Exam ED Vital Signs: Vital Signs - 24 hr 11/03/23 19:11 11/04/23 01:31 11/04/23 04:08 Temperature 98.3 F 98.0 F 97.9 F Pulse Rate 75 63 53 Respiratory Rate 15 16 16 Blood Pressure 148/94 H 132/82 122/80 Pulse Oximetry 98 98 97 Oxygen Delivery Method Room Air Room Air Room Air BMI result Body Mass Index 34.9 VITAL SIGNS: Reviewed. GENERAL: Well developed, well nourished, in no acute distress. HEAD: Normocephalic/atraumatic EYES: PERRLA, EOMI EARS: Ext canals without abnormality, TMs non-bulging and non-erythematous NOSE: Nares patent bilateral OROPHARYNX: no oral lesions noted, posterior pharynx clear and non-erythematous without noted tonsillar enlargement but positive erythema NECK: Supple, no adenopathy LUNGS: Normal breath sounds. No adventitious sounds or accessory muscle use. SpO2<98> CARDIOVASCULAR: Regular rate and rhythm without noted murmurs ABDOMEN: Soft, non-tender, non-distended with bowel sounds. MUSCULOSKELETAL: No tenderness, deformities, or effusions noted on gross inspection. EXTREMITIES: No cyanosis, clubbing or edema. SKIN: Inspection of the skin reveals no rashes NEUROLOGIC: Alert and oriented x 4. Strength and sensation to light touch were grossly intact x 4. Course Course Course Narrative: RME:?48 yo male here w/ headache x6 days. Pain radiated from posterior neck, occipitally, and into b/l temples. Not worse w/ positional changes. Taking Excedrin and Tylenol at home w/o relief. hx of c6-c7 spinal fusion in 2007. no recent injury or trauma. reports nausea. Denies vision changes, vomiting. No hx of migraines. home covid test negative. No scalp tenderness. no palpable temporal aa. exam nonfocal. Basic labs, imaging Full HPI, ROS and PE to be performed by the primary ED provider. Medications Administered Discontinued Medications Generic Name Dose Route Start Last Admin Trade Name Freq PRN Reason Stop Dose Admin Acetaminophen/Butalbital/Caffeine 1 tab 11/04/23 02:19 11/04/23 02:31 Butalb/Acetamin/Caff 50/325/40 Tablet PO 11/04/23 02:20 1 tab ONCE ONE Administration Medical Decision Making Medical Decision Making [facility] Narrative: 48-year-old male with history and clinical presentation consistent with chronic headache, no clinical suspicion for meningitis and suspect that this is an acute on chronic scenario. Will evaluate for evidence of systemic infection or viral infection. Reviewed all investigations and hematologic indices are negative for leukocytosis or left shift and there is no anemia or thrombocytopenia. Chemistry disease are grossly within normal limits without evidence of MICKI are electrolytes derangements. Viral testing for influenza and COVID are negative. CT scan of the head is negative for intracranial hemorrhage or mass effect and otherwise my interpretation is in agreement with radiology's impression. CT imaging of cervical spine is negative for acute findings and otherwise simply demonstrates known anterior fusion C6-C7. I provided patient with a dose of Fioricet 0415: Patient noted to be resting comfortably in the gurney, sleeping, and when asked about his pain he says that it is still an 8/10. Patient will receive Tylenol and otherwise be discharged for follow-up with his primary care doctor. Differential Diagnosis Differential Diagnoses: The differential diagnosis associated with the presentation includes Please see the discussion above Admission/Observation Consideration of admission/observation: Escalation of care including admission/observation considered Please see the discussion above Lab Data [facility] Lab Attestation statement: I reviewed the patient's lab results. Please see the discussion above 11/03/23 19:28 11/03/23 19:28 Labs: Lab Results 11/03/23 11/04/23 11/04/23 Range/Units 19:28 01:58 02:40 WBC 9.5 (4.8-10.8) X10*3/uL RBC 5.81 H (4.60-5.80) X10*6/uL Hgb 15.9 (14.0-18.0) g/dl Hct 45.9 (42.0-52.0) % MCV 79.0 L (80.0-98.0) fL MCH 27.4 (27.0-33.0) pg MCHC 34.6 (31.0-36.0) g/dl RDW 12.2 (11.0-16.0) % Plt Count 305 (160-400) X10*3/uL MPV 9.5 (9.4-12.4) fL Immature Gran % (Auto) 1.2 H (0.0-0.4) % Neut % (Auto) 56.1 (45-73) % Lymph % (Auto) 32.0 (20-40) % [place] % (Auto) 8.0 (2-11) % Eos % (Auto) 1.5 (0-4) % Baso % (Auto) 1.2 (0-2) % Lymph # (Auto) 3.0 (1.2-4.9) X10*3/uL [place] # (Auto) 0.8 (0.1-1.2) X10*3/uL Eos # (Auto) 0.1 (0.0-0.4) X10*3/uL Baso # (Auto) 0.1 (0.0-0.2) X10*3/uL Abs Immat Gran (auto) 0.11 H (0.00-0.03) X10*3/uL Absolute Neuts (auto) 5.3 (2.0-8.3) x10*3/uL Absolute Nucleated RBC 0.000 (0.0-0.012) X10*3/uL Nucleated RBC % (auto) 0.0 (0.0-0.2) /100WBC ESR 2 (0-15) MM/HR Sodium 141 (135-145) mmol/L Potassium 3.6 (3.3-5.1) mmol/L Chloride 108 (96-108) mmol/L Carbon Dioxide 23 (22-29) mmol/L Anion Gap 14 (12-20) BUN 13 (9-16) mg/dL Creatinine 0.87 (0.5-1.4) mg/dL Estim Creat Clear Calc 100.4 Estimated GFR > 60 Random Glucose 116 H (60-115) mg/dL Calcium 9.3 (8.4-10.2) mg/dL Magnesium 2.2 (1.6-2.6) mg/dL C-Reactive Protein < 0.10 (< or = 0.50) mg/dL COVID-19 (ANNA) Negative (Negative) COVID-19 Clin Com See Note Influenza Type A (SUNITHA) Negative (Negative) Influenza Type B (SUNITHA) Negative (Negative) Influenza A & B Note See Note S. pyogenes GrpA SUNITHA Negative (Negative) Radiology Impression Discussion of test interpretation with radiology: I have reviewed the radiologist's reading. Radiologist Impression: Please see the discussion above External Record Review External record reviewed: Outpatient record, Prior outpatient labs and Prior outpatient radiology Discharge Plan Discharge Clinical Impression: Headache Patient Disposition: Home, Self-Care Instructions: General Headache (ED) Additional Instructions: 1. Resume all home medications as prescribed. 2. Please follow-up with primary care doctor to discuss possible referral to pain management. Your workup was negative today. Return to the ER for any worsening symptoms. Prescriptions: No Action cyclobenzaprine 10 mg tablet 10 mg PO TID PRN (Reason: muscle spasm) Qty: 14 0RF hydrocodone-acetaminophen 5-325 mg tablet 1 tab PO Q6H PRN (Reason: pain) Qty: 12 0RF prednisone 20 mg tablet 40 mg PO DAILY 5 Days Qty: 10 0RF oxycodone 5 mg tablet 5 mg PO Q8H PRN (Reason: pain) Qty: 10 0RF Rx Instructions: Partial Fill upon patient request. oxycodone 5 mg tablet 5 mg PO Q6H PRN (Reason: pain) Qty: 20 0RF Rx Instructions: Partial Fill upon patient request. tamsulosin [Flomax] 0.4 mg capsule 0.4 mg PO BEDTIME Qty: 10 0RF
[2023-11-03 19:33] LABS: MANUAL DIFF FLAG NO
[2023-11-03 19:34] LABS: Basophils Absolute Auto 0.1 X10*3/uL (0.0-0.2); Basophils Percent Auto 1.2 % (0-2); Eosinophils Absolute Auto 0.1 X10*3/uL (0.0-0.4); Eosinophils Percent Auto 1.5 % (0-4); Hematocrit 45.9 % (42.0-52.0); Hemoglobin 15.9 g/dl (14.0-18.0); Imm Gran Abs Auto 0.11 X10*3/uL (0.00-0.03); Imm Gran Pct Auto 1.2 % (0.0-0.4); Mean Corpuscular HGB Conc 34.6 g/dl (31.0-36.0); Mean Corpuscular Hemoglobin 27.4 pg (27.0-33.0); Mean Platelet Volume 9.5 fL (9.4-12.4); Monocytes Absolute Auto 0.8 X10*3/uL (0.1-1.2); Neutrophils Absolute Auto 5.3 x10*3/uL (2.0-8.3); Neutrophils Percent Auto 56.1 % (45-73); Platelet Count 305 X10*3/uL (160-400); Red Blood Count 5.81 X10*6/uL (4.60-5.80); Red Cell Distribution Width 12.2 % (11.0-16.0); White Blood Count 9.5 X10*3/uL (4.8-10.8)
[2023-11-03 19:47] LABS: Anion Gap 14 (12-20); Blood Urea Nitrogen 13 mg/dL (9-16); C Reactive Protein < 0.10 mg/dL (< or = 0.50); Calcium 9.3 mg/dL (8.4-10.2); Carbon Dioxide 23 mmol/L (22-29); Chloride 108 mmol/L (96-108); Creatinine Clr Calc Pharmacy 100.4; Estimated Glomerular Filt Rate > 60; Glucose Random 116 mg/dL (60-115); Magnesium 2.2 mg/dL (1.6-2.6); Potassium 3.6 mmol/L (3.3-5.1); Sodium 141 mmol/L (135-145)
[2023-11-03 20:24] LABS: Erythrocyte Sedimentation Rate 2 MM/HR (0-15)
[2023-11-04 01:31] VITALS: BP 132/82; PULSE 63; RESP 16; TEMP 36.7; O2SAT 98
[2023-11-04] MEDS: Butalb/Acetamin/Caff 50/325/40 TABLET 1 TAB PO (02:31)
[2023-11-04 02:41] LABS: COVID-19 Test Negative (Negative); IDNOW Serial# 08D9AD1C; IDNOW Serial# BCCEAD1C; Influenza A Negative (Negative); Influenza B2 Negative (Negative)
[2023-11-04 02:58] LABS: IDNOW Serial# 6674DD1D; Strep A Nucleic Acid Negative (Negative)
[2023-11-04 04:08] VITALS: BP 122/80; PULSE 53; RESP 16; TEMP 36.6; O2SAT 97
== END 2023-11-04 04:37 | disposition home or self-care (01) ==
PROVIDERS: Physician Assistant Medical; Emergency Provider Student in an Organized Health Care Education/Training Program; PCP Registered Nurse
DX: R51.9 Headache, unspecified (principal); M54.2 Cervicalgia; Z11.52 Encounter for screening for COVID-19; Z20.822 Contact with and (suspected) exposure to COVID-19; Z79.899 Other long term (current) drug therapy
CPT/HCPCS: 36415; 70450; 72040; 80048; 83735; 85025; 85652; 86140; 87502; 87635; 87651; 99284